=== PATIENT | female | born 1950 | race Caucasian/White ===

== ENCOUNTER 2019-01-05 10:11 | Outpatient (CLI) | payer MEDICARE ==
--- NOTE | 2019-01-05 10:36 | RAD ---
XR Knee Rt 2 View: 01/05/2019 12:00 AM CLINICAL INDICATION: Pain COMPARISON: None. FINDINGS: Fracture:No acute fracture. There is heterotopic density adjacent the lateral femoral condyle with adjacent chronic appearing, co rticated subcortical lucency. Arthropathy:Moderate osteoarthritis Incidental findings:Mild joint capsular distention IMPRESSION: 1. No acute osseous abnormality. 2. Sequela from chronic avulsion injury centered about the lateral collateral ligament.
== END 2019-01-05 10:12 | disposition home or self-care (01) ==
LOC: BICRAD 10:11
PROVIDERS: ATTEND Family Medicine
DX: Z12.11 Encounter for screening for malignant neoplasm of colon (principal); M25.561 Pain in right knee; E03.9 Hypothyroidism, unspecified; E78.2 Mixed hyperlipidemia; S83.421S Sprain of lateral collateral ligament of right knee, sequela

== ENCOUNTER 2020-03-22 15:58 | Outpatient (CLI) | payer MEDICARE ==
--- NOTE | 2020-03-22 16:41 | BD ---
Exam: DEXA Bone Density 03/22/20 INDICATIONS: Postmenopausal screening. Lumbar Spine: BMD (g/cm2) T-SCORE L1 0.917 -0.7 L2 1.025 0.0 L3 1.190 1.0 L4 1.222 1.5 L1-L4 1.096 0.5 Femoral Neck: 0.713 -1.2 Total Femur: 0.939 0.0 Impression: 1. Bone mineral density of the lumbar spine within normal range. 2. Bone mineral density of the femoral neck indicates osteopenia. Ten year fracture risk: Major osteoporotic fracture: 8.4%. Hip fracture: 0.8%. POS: AGW
--- NOTE | 2020-03-22 16:47 | RAD ---
Exam: XR Knee Rt 3 View HISTORY: Right knee pain. COMPARISON: 01/15/2019 FINDINGS: Tricompartment osteophytosis is again present. Mild sclerosis along the lateral tibial plateau is aga in present. No fracture or dislocation is seen. A small osseous density overlies region of the medial tibial spine which was not seen on the prior exam. This could potentially represent intra-mj cular loose body. A small suprapatellar joint effusion is again identified IMPRESSION: 1. No acute osseous and amount. 2. Osteoarthritis. 3. Suggestion of small intra-articular loose body overlying the region of the medial tibial spine.
--- NOTE | 2020-03-22 16:48 | RAD ---
Exam: XR Knee Lt 3 View HISTORY: Left knee pain after a fall. Patient states posterior knee pain. COMPARISON: None FINDINGS: There is tricompartment osteophytosis. No significant joint space narrowing is appreciated. No fractu re or dislocation is identified. Small suprapatellar left knee joint effusion is present. IMPRESSION: 1. Small suprapatellar left knee joint effusion. 2. Mild osteoarthritis without acute osseous abnormality.
== END 2020-03-22 15:59 | disposition home or self-care (01) ==
LOC: BICRAD 15:58
PROVIDERS: ATTEND Family Medicine
DX: Z13.820 Encounter for screening for osteoporosis (principal); Z78.0 Asymptomatic menopausal state; G89.29 Other chronic pain; M85.859 Other specified disorders of bone density and structure, unspecified thigh; M17.0 Bilateral primary osteoarthritis of knee
CPT/HCPCS: 77080

== ENCOUNTER 2021-01-07 09:39 | Outpatient (CLI) | payer MEDICARE | END 2021-01-07 09:40 | disposition home or self-care (01) | LOC: BICRAD 09:39 | PROVIDERS: ATTEND Family Medicine | DX: M54.32 Sciatica, left side (principal); M47.816 Spondylosis without myelopathy or radiculopathy, lumbar region | CPT/HCPCS: 72100 ==

== ENCOUNTER 2021-04-16 08:45 | Outpatient (CLI) | payer MEDICARE | END 2021-04-16 08:46 | disposition home or self-care (01) | LOC: BICRAD 08:45 | PROVIDERS: ATTEND Family Medicine | DX: M25.552 Pain in left hip (principal) ==

== ENCOUNTER 2022-03-26 08:25 | Outpatient (CLI) | payer MEDICARE ==
[2022-03-26] MEDS ORDERED: Iopamidol-370 76% 500 ML 1 ML ONE (09:49)
== END 2022-03-26 08:26 | disposition home or self-care (01) ==
LOC: BICCT 08:25
PROVIDERS: ATTEND Family Medicine
DX: K62.3 Rectal prolapse (principal); K44.9 Diaphragmatic hernia without obstruction or gangrene; K57.50 Diverticulosis of both small and large intestine without perforation or abscess without bleeding
CPT/HCPCS: 74177; 82565; Q9967